=== PATIENT | female | born 1970 | race Two or more races ===

== ENCOUNTER 2021-04-03 09:32 | Inpatient (IN) | payer OTHER ==
[~2021-04-03] VITALS: Ht 160 cm; Wt 53.1 kg
[~2021-04-03 09:32] MED LIST: CLARITIN PO; MAXALT10 MG PO; ZYRTEC10 M3 PO
[2021-04-04] MEDS ORDERED: CLARITIN10 MG (08:18)
== END 2021-04-05 13:05 | disposition home or self-care (01) | DRG 747 ==
LOC: CIR.AMB 09:32 → O/R 20:19 → OB/GYN 20:19
PROVIDERS: ADMIT Obstetrics & Gynecology; ATTEND Obstetrics & Gynecology
PROC: 0UBLXZZ Excision of Vestibular Gland, External Approach (ICD-10-PCS; principal; 2021-04-03 07:00)
DX: N75.0 Cyst of Bartholin's gland (principal)